=== PATIENT | female | born 1985 | race Caucasian/White ===

== ENCOUNTER 2023-09-16 04:45 | Emergency (ER) | payer BC ==
[2023-09-16 05:16] LABS: EOSINOPHILS PERCENT AUTO 0.1 % (0.0-4.0); HEMATOCRIT 38.6 % (33.0-47.0); HEMOGLOBIN 13.7 g/dL (12.0-16.0); IMMATURE GRAN ABSOLUTE AUTO 0.01 x10^3/uL (0.00-0.07); LYMPHOCYTES ABSOLUTE AUTO 0.9 x10^3/uL (1.0-4.8); MEAN CORPUSCULAR HEMOGLOBIN 30.6 pg (26.0-32.0); MEAN CORPUSCULAR HGB CONC 35.5 g/dL (32.0-36.0); MEAN CORPUSCULAR VOLUME 86.2 fL (78.0-93.0); MONOCYTES ABSOLUTE AUTO 0.3 x10^3/uL (0.0-0.8); MONOCYTES PERCENT AUTO 3.4 % (2.0-11.0); NEUTROPHILS ABSOLUTE AUTO 7.2 x10^3/uL (1.8-7.7); NEUTROPHILS PERCENT AUTO 85.4 % (50.0-80.0); PLATELET COUNT,PLT 232 x10^3/uL (130-400); RED BLOOD CELL COUNT 4.48 x10^6/uL (4.00-5.50); WHITE BLOOD CELL COUNT,WBC 8.5 x10^3/uL (4.0-10.0)
[2023-09-16] MEDS: Sodium Chloride 0.9% 1,000 ML IV ONE (05:25)
[2023-09-16] MEDS: Ondansetron 4 MG/2 ML SDV IVPUSH ONE (05:25)
[2023-09-16] MEDS: HYDROmorphone 1 MG/ML Syringe IVPUSH ONE (05:31)
[2023-09-16 05:32] LABS: A/G RATIO 1.24; ALANINE AMINOTRANSFERASE,ALT 21 U/L (14-59); ALBUMIN 4.2 g/dL (3.4-5.0); ALKALINE PHOSPHATASE 57 U/L (46-116); ASPARTATE AMNIOTRANSFERASE,AST 25 U/L (15-37); BILIRUBIN TOTAL 0.4 mg/dL (0.2-1.0); BLOOD UREA NITROGEN,BUN 13 mg/dL (7-18); CALCIUM 9.3 mg/dL (8.5-10.1); CARBON DIOXIDE,CO2 27 mmol/L (21-32); CHLORIDE,CL 105 mmol/L (98-107); CREATININE 0.9 mg/dL (0.55-1.02); GLUCOSE RANDOM 134 mg/dL (70-99); LIPASE 38 U/L (19-71); POTASSIUM,K 3.3 mmol/L (3.5-5.1); PROTEIN TOTAL,TP 7.6 g/dL (6.4-8.2); SODIUM,NA 144 mmol/L (136-145)
[2023-09-16 05:34] LABS: ANION GAP 15.3 mmol/L (5-15); ESTIMATED GFR 84 mL/min (>=60)
[2023-09-16] MEDS: Potassium Chloride 10 MEQ Tab.ER PO ONE (05:59)
[2023-09-16] MEDS: Iopamidol 612 MG/ML 100 ML Bottle IVPUSH ONE (06:55)
[2023-09-16] MEDS: Ketorolac 15 MG/ML SDV IVPUSH ONE (07:25)
[2023-09-16] MEDS: HYDROmorphone 0.5 MG/0.5 ML Syringe IVPUSH ONE (07:34)
[2023-09-16] MEDS: Metoclopramide 10 MG/2 ML SDV IVPUSH ONE (07:53)
== END 2023-09-16 08:29 | disposition home or self-care (01) ==
LOC: VM.ED 04:45
DX: K80.10 Calculus of gallbladder with chronic cholecystitis without obstruction (principal); Z79.899 Other long term (current) drug therapy
CPT/HCPCS: 74177; 80053; 83690; 85025; 96361; 96374; 96375; 96376; 99284; 99284-25; A9270-GY; J1170; J1885; J2405; J2765; J7030; Q9967